=== PATIENT | female | born 1985 | race Asian ===

== ENCOUNTER 2018-04-18 03:10 | Emergency (ER) | payer BC ==
[2018-04-18] MEDS ORDERED: Iopamidol 755 Mg/ML 75 ML Bottle IV ONE (03:57)
--- NOTE | 2018-04-18 05:25 | ER ---
DATE SEEN: 04/18/2018 CHIEF COMPLAINT: Swelling of the legs and chest tightness. HISTORY OF PRESENT ILLNESS: This is a 32-year-old female complaining of swelling of the legs that has been going on since her surgery. She had a C- section on Thursday. She has noted worsening of the swelling. In addition, she complains of some chest tightness, but no pain. No shortness of breath. PAST MEDICAL HISTORY: This is her first baby. No previous surgeries and no medical problems. ALLERGIES: No known allergies. REVIEW OF SYSTEMS: All other systems were negative with the exception of dysuria. PHYSICAL EXAMINATION: VITAL SIGNS: Blood pressure is normal. She is afebrile, oxygenation 100%, and heart rate is only 59. ENT: Negative. NECK: Supple. CHEST: Clear. ABDOMEN: Soft. EXTREMITIES: Nonpitting 2+ edema. LABORATORY DATA: Hemoglobin 10.5. Troponin is less than 0.017. UA which showed some rbc's. EKG normal. CT scan could not find any definite evidence of PE. IMPRESSION: 1. Edema of the legs. 2. Status post primary section. PLAN: I will discharge the patient home. Elevation of the legs. According to the recommendation of the radiologist, we will obtain a DVT ultrasound later in the day as an outpatient. /[id number] MINDY/ALIDA
== END 2018-04-18 05:08 | disposition home or self-care (01) ==
LOC: FB.ED 03:10
DX: O99.89 Other specified diseases and conditions complicating pregnancy, childbirth and the puerperium (principal); R60.0 Localized edema
CPT/HCPCS: 36415; 71275; 80048; 81001; 83880; 84484; 85025; 85379; 93005; 99284; Q9967